=== PATIENT | male | born 1960 | race Caucasian/White ===

== ENCOUNTER → 2019-02-07 11:22 | Outpatient (CLI) | payer OTHER, SELFPAY ==
[2019-02-07 12:13] LABS: Add Manual Diff / Slide Review NO; Basophils Absolute Auto 0 /uL (0-100); Basophils Percent Auto 0.4 % (0-2); Eosinophils Absolute Auto 100 /uL (0-450); Hematocrit 46.6 % (41-53); Hemoglobin 15.7 g/dL (13.5-17.5); Lymphocytes Absolute Auto 3700 /uL (1100-4500); Lymphocytes Percent Auto 46.4 % (25-40); Mean Corpuscular HGB Conc 33.6 % (30-36); Mean Corpuscular Hemoglobin 30.3 PG (26-34); Mean Corpuscular Volume 90.1 fL (80-100); Monocytes Absolute Auto 600 /uL (0-900); Monocytes Percent Auto 8.1 % (3-14); Neutrophils Absolute Auto 3500 /uL (1500-7000); Neutrophils Percent Auto 44.1 % (50-75); Platelet Count 196 X10^3/uL (150-400); Red Blood Cell Count 5.18 X10^6/uL (4.5-5.9); Red Cell Distribution Width 13.2 % (11.6-14.8)
[2019-02-07 12:33] LABS: Alanine Aminotransferase 38 IU/L (21-72); Albumin 4.9 g/dL (3.5-5.0); Albumin Globulin Ratio 1.6 (1.0-2.8); Alkaline Phosphatase 41 U/L (38-126); Aspartate Aminotransferase 28 IU/L (17-59); BUN Creatinine Ratio 15.5 (6-22); Bilirubin Total 0.9 mg/dL (0.2-1.3); Blood Urea Nitrogen 17 mg/dL (9-20); Carbon Dioxide 26 mmol/L (22-32); Chloride 102 mmol/L (98-107); Cholesterol 173 mg/dL (140-199); Estimated Glomerular Filt Rate > 60.0 mL/min (>60); Globulin 3.1 g/dL (1.7-4.1); Glucose 96 mg/dL (70-100); HDL Cholesterol 52 mg/dL (40-60); HEMOLYSIS < 15 (0-50); LDL Cholesterol Calculated 80 mg/dL (<100); Potassium 4.3 mmol/L (3.4-5.1); Sodium 138 mmol/L (137-145); Triglycerides 204 mg/dL (35-150)
== END ==
PROVIDERS: PCP Internal Medicine; Visit Provider Internal Medicine
DX: E78.5 Hyperlipidemia, unspecified (principal); R73.01 Impaired fasting glucose; I10 Essential (primary) hypertension
CPT/HCPCS: 36415; 80053; 80061; 85025; G0103

== ENCOUNTER → 2019-08-01 09:09 | Outpatient (CLI) | payer OTHER, SELFPAY ==
--- NOTE | 2019-08-01 | DI.MRI.S_ITS ---
PROCEDURE: MR CERVICAL SPINE WO CON INDICATIONS: Spinal stenosis, cervical region TECHNIQUE: Noncontrast sagittal T1 spin echo and T2 fast spin echo, sagittal STIR, foraminal oblique sagittal T2 fast spin echo, and axial gradient echo or T2 fast spin echo through the cervical spine. COMPARISON: [facility], MR, C-SPINE WITHOUT CONTRAST, 01/14/2015, 9:08. [facility], CR, CERVICAL SPINE 2 OR 3 VIEWS, 12/08/2014, 13:23. FINDINGS: Image quality: Excellent. Alignment and Curvature: There is trace retrolisthesis of C4 on C5 and C5 on C6. Bone Marrow: Degenerative endplate signal changes are present in lower cervical spine. Spinal Cord: Visualized spinal cord has normal size and signal. No cerebellar tonsillar herniation. Paraspinous Soft Tissues: No paravertebral masses. Prevertebral soft tissues are normal in thickness. C2-C3: Preserved disc height. Mild disc desiccation. There is left posterior lateral annular fissure. Mild bilateral uncovertebral hypertrophy. The central canal is patent. Mild bilateral foraminal stenosis. No definitive nerve root impingement. C3-C4: Mild loss of disc height and disc desiccation. Mild diffuse posterior disc bulge. Uncovertebral hypertrophy, moderate on the right and mild on the left. Moderate right and mild left facet arthropathy. The central canal is mildly narrowed. Severe right and moderate left foraminal stenosis, not significantly changed from last exam. Possible right nerve root impingement. C4-C5: Moderate loss of disc height and disc desiccation. There is diffuse posterior disc bulge and disc osteophyte complex. Severe bilateral uncovertebral hypertrophy. Mild facet arthropathy bilaterally. The central canal is mildly narrowed. Severe left and moderate right foraminal stenosis, increased compared to the last exam. Possible left nerve root impingement. C5-C6: Moderate loss of disc height and disc desiccation. There is diffuse posterior disc bulge and disc osteophyte complex. Severe bilateral uncovertebral hypertrophy. The central canal is mildly narrowed. Severe left and moderate right foraminal stenosis, increased compared to the last exam. Possible left nerve root impingement. C6-C7: Qikcyupd-ky-khismh loss of disc height and disc desiccation. There is diffuse posterior disc bulge and disc osteophyte complex. Severe bilateral uncovertebral hypertrophy. The central canal is mildly narrowed. Modest to severe foraminal stenosis, increased compared to the last exam. Possible nerve root impingement bilaterally. C7-T1: Mild loss of disc height and posterior disc bulge. No central canal stenosis. Mild bilateral foramina stenosis. IMPRESSION: 1. Multilevel degenerative disc disease and facet arthropathy as described. 2. MIild central canal stenosis at C3-C4, C4-C5, C5-C6 and C6-C7. 3. Multilevel foraminal stenosis as described. Dictated by: Thor Amin M.D. on 08/01/2019 at 10:29 Approved by: Thor Amin M.D. on 08/01/2019 at 17:21
== END ==
PROVIDERS: PCP Internal Medicine; Visit Provider Internal Medicine
DX: M48.02 Spinal stenosis, cervical region (principal); M47.812 Spondylosis without myelopathy or radiculopathy, cervical region; M50.31 Other cervical disc degeneration, high cervical region
CPT/HCPCS: 72141

== ENCOUNTER → 2020-02-06 07:38 | Outpatient (CLI) | payer OTHER, SELFPAY ==
[2020-02-06 08:28] LABS: Alanine Aminotransferase 29 IU/L (<50); Albumin 4.5 g/dL (3.5-5.0); Albumin Globulin Ratio 1.5 (1.0-2.8); Alkaline Phosphatase 39 U/L (38-126); Aspartate Aminotransferase 28 IU/L (17-59); Bilirubin Total 0.6 mg/dL (0.2-1.3); Blood Urea Nitrogen 16 mg/dL (9-20); Calcium 9.6 mg/dL (8.4-10.2); Carbon Dioxide 27 mmol/L (22-32); Chloride 104 mmol/L (98-107); Cholesterol 155 mg/dL (140-199); Estimated Glomerular Filt Rate > 60.0 mL/min (>60); Globulin 3.1 g/dL (1.7-4.1); Glucose 131 mg/dL (70-100); HDL Cholesterol 52 mg/dL (40-60); HEMOLYSIS < 15 (0-50); LDL Cholesterol Calculated 84 mg/dL (<100); Potassium 4.2 mmol/L (3.4-5.1); Sodium 138 mmol/L (137-145); Total Protein 7.6 g/dL (6.3-8.2); Triglycerides 95 mg/dL (35-150)
== END ==
PROVIDERS: PCP Internal Medicine; Referring Provider Internal Medicine; Visit Provider Internal Medicine
DX: E78.5 Hyperlipidemia, unspecified (principal)
CPT/HCPCS: 36415; 80053; 80061

== ENCOUNTER → 2020-07-30 10:18 | Outpatient (CLI) | payer OTHER, SELFPAY ==
--- NOTE | 2020-07-30 10:23 | DI.RAD.S_ITS ---
PROCEDURE: XR FOOT RT MIN 3V INDICATIONS: RT FOOT PAIN TECHNIQUE: 3 views of the foot were acquired. COMPARISON: None. FINDINGS: Bones: No fractures or dislocations. No suspicious bony lesions. Soft tissues: No tibiotalar joint effusion. Achilles tendon appears normal. IMPRESSION: No fracture. No osseous lesion. If symptoms and/or clinical suspicion for pathology persists, further assessment with repeat radiographs (7-10 days) or advanced imaging (e.g. CT, MRI or bone scan) may be helpful. Dictated by: Gloria Ch MD, PhD on 07/30/2020 at 16:43 Approved by: Gloria Ch MD, PhD on 07/30/2020 at 16:44
== END ==
PROVIDERS: PCP Internal Medicine; Referring Provider Internal Medicine; Visit Provider Internal Medicine
DX: M79.671 Pain in right foot (principal); M15.0 Primary generalized (osteo)arthritis
CPT/HCPCS: 73630

== ENCOUNTER → 2020-08-06 15:15 | Outpatient (CLI) | payer OTHER, SELFPAY ==
[2020-08-06 16:04] LABS: Uric Acid 6.8 mg/dL (3.5-8.5)
[2020-08-06 16:15] LABS: Erythrocyte Sedimentation Rate 4 MM/HR (0-15)
== END ==
PROVIDERS: PCP Internal Medicine; Referring Provider Internal Medicine; Visit Provider Internal Medicine
DX: R70.0 Elevated erythrocyte sedimentation rate (principal); E79.0 Hyperuricemia without signs of inflammatory arthritis and tophaceous disease
CPT/HCPCS: 36415; 84550; 85651

== ENCOUNTER 2021-10-01 11:14 | Emergency (ER) | payer OTHER, SELFPAY ==
[2021-10-01] VITALS (7 sets, daily range): BP systolic 107–122; BP diastolic 78–91; PULSE 81–129; RESP 18–24; TEMP 36.4; O2SAT 95–99
--- NOTE | 2021-10-01 11:25 | DI.RAD.S_ITS ---
PROCEDURE: XR CHEST 1V INDICATIONS: chest pain TECHNIQUE: One view of the chest was acquired. COMPARISON: [facility], , CHEST 2 VIEW, 08/29/2016, 14:37. FINDINGS: Surgical changes and devices: None. Lungs and pleura: An incomplete inspiratory result is noted, causing a crowded appearance to the lung markings. No focal infiltrates are seen. No pneumothorax or significant pleural effusions are seen. Mediastinum: The cardiac contours are within normal limits. The aorta demonstrates calcification and tortuosity. Bones and chest wall: No suspicious bony lesions. Age-appropriate bony degenerative changes are seen. Overlying soft tissues appear unremarkable. IMPRESSION: Limited portable chest examination, without a significant cardiopulmonary abnormality identified. Dictated by: Alex Santos M.D. on 10/01/2021 at 10:59 Approved by: Alex Santos M.D. on 10/01/2021 at 11:00
[2021-10-01 11:51] LABS: Add Manual Diff / Slide Review NO; Basophils Absolute Auto 100 /uL (0-100); Basophils Percent Auto 0.4 % (0-2); Eosinophils Absolute Auto 0 /uL (0-450); Eosinophils Percent Auto 0.2 % (2-4); Hematocrit 45.6 % (41-53); Hemoglobin 15.6 g/dL (13.5-17.5); Lymphocytes Absolute Auto 2200 /uL (1100-4500); Mean Corpuscular HGB Conc 34.1 % (30-36); Mean Corpuscular Hemoglobin 30.6 PG (26-34); Mean Corpuscular Volume 89.8 fL (80-100); Monocytes Absolute Auto 1400 /uL (0-900); Monocytes Percent Auto 11.1 % (3-14); Neutrophils Absolute Auto 9000 /uL (1500-7000); Neutrophils Percent Auto 71.3 % (50-75); Platelet Count 156 X10^3/uL (150-400); Red Blood Cell Count 5.08 X10^6/uL (4.5-5.9); Red Cell Distribution Width 13.3 % (11.6-14.8); White Blood Cell Count 12.7 X10^3/uL (4.5-11.0)
[2021-10-01 11:52] LABS: INR 1.1 (0.9-1.3); Prothrombin Time 12.5 SECONDS (10.1-12.7)
--- NOTE | 2021-10-01 11:53 | ED_ITS ---
HPI - Syncope General Chief Complaint: Syncope Stated Complaint: root canal yesterday, face puffy Time Seen by Provider: 10/01/21 11:52 Source: patient Mode of arrival: Ambulatory Limitations: no limitations History of Present Illness HPI narrative: This is a 61-year-old male who comes to the emergency department with several concerns. Patient had a root canal on tooth 3. Yesterday, who was noted that tooth number 31 had been bothering him it was a little bit swollen yesterday [facility]. He has noticed increasing swelling and discomfort at that site as well as just under his chin. No redness or warmth. He has not had any fevers. He has been taking ibuprofen and Tylenol as needed for pain. He has not noted any drainage but has noted some tenderness swelling underneath his tongue. Patient states that he woke up at midnight to go to the bathroom. He urinated and states he woke up on the floor. He states that he could have been on the floor for more than a couple minutes he had woken up at 12:10 p.m. and was back in bed and asleep by 12 20. He states he was diaphoretic shortly there after. He did not have any incontinence. He states that he feels more comfortable upright, he is able to swallow liquids and food and feels swelling underneath the chin but not any in her airway. He denies chest pain, shortness of breath, palpitations. No swelling in his extremities but noted cramping last night. He had some nausea overnight but no vomiting. He has not had any other skin changes. He takes amlodipine for hypertension, statin Flomax. He is not anticoagulated he does not take an aspirin daily. He denies any prior surgical history other than dental surgeries. No known drug allergies. No tobacco, 4-5 alcoholic drinks daily, no illicit. He notes his father 2 brothers all have atrial fibrillation. His mother is 95 and has atrial fibrillation. He has never had any cardiac workup. He states the oral surgeon has called into antibiotics for his mouth. Related Data Home Medications Medication Instructions Recorded Confirmed amlodipine 10 mg tablet 10 mg PO BEDTIME 10/01/21 10/01/21 simvastatin 40 mg tablet 20 mg PO BEDTIME 10/01/21 10/01/21 tamsulosin 0.4 mg capsule 0.4 mg PO BEDTIME 10/01/21 10/01/21 Previous Rx's Medication Instructions Recorded apixaban 5 mg tablet (Eliquis) 5 mg PO BID #14 tab 10/01/21 metoprolol succinate 25 mg 12.5 mg PO DAILY #7 tab 10/01/21 tablet,extended release 24 hr Allergies Allergy/AdvReac Type Severity Reaction Status Date / Time No Known Drug Allergies Allergy Verified 10/01/21 11:23 Review of Systems Review of Systems ROS Unobtainable: All systems reviewed & are unremarkable except as noted in HPI and below Patient History Social History Smoking Status: Former smoker Smoking Status: Former smoker alcohol intake frequency: 3 or more drinks per day Substance Use Type: marijuana Exam Narrative Exam Narrative: GEN: well nourished, well appearing male, alert and oriented x 3, patient appears to be in mild distress. HEENT: Atraumatic, pupils are equal round reactive to light, extraocular movements are intact, nares are clear, TMs are clear with no fluid, there is no conjunctival pallor. Throat is clear without any exudates, erythema, tonsillar enlargement or uvular deviation, patient does appear to have root canal on the right upper which appears intact. There is not all of foot patient has foods phone of the right lower gum and some mild swelling underneath the mandible. No warmth, erythema or fluctuance is appreciated. No masses noted. HEART: Irregularly irregularrate and rhythm without murmur, clicks, rubs. No JVD. No swelling bilateral lower extremities. LUNGS:Lungs clear to auscultation, no wheezes, rales, crackles, chest moves symmetrically, speaks in full sentences. ABD:bowel sounds normal, soft, non-tender, no guarding, rebound, rigidity, no masses noted, no hepatosplenomegaly MSCL: Non-tender, full range of motion, normal gait NEURO:CN 2-12 intact, sensation normal SKIN: No warmth, erythema or other skin changes noted. Initial Vital Signs Initial Vital Signs: Vital Signs Temperature 97.5 F L 10/01/21 11:16 Pulse Rate 100 H 10/01/21 11:16 Respiratory Rate 18 10/01/21 11:16 Blood Pressure 122/78 10/01/21 11:16 Pulse Oximetry 95 10/01/21 11:16 Scores CHADS-VASc Congestive heart failure: no Hypertension: yes Age 75 years or older: no Diabetes mellitus: no Stroke, TIA, or TE: no Vascular disease: no Age 65 to 74 years: no Sex category (female): Male CHADS-VASc Score: 1 Course Orders Ordered: ED Orders 10/01/21 11:25 XR chest 1V Stat 10/01/21 11:30 EKG-12 Lead Stat 10/01/21 11:35 Complete Blood Count AUTO DIFF Stat Comprehensive Metabolic Panel Stat Lipase Stat Magnesium Stat Partial Thromboplastin Time Stat Prothrombin Time INR Stat Troponin & CK Cardiac Panel Stat 10/01/21 12:03 COVID19 - ADMIT ([employer] swab/PCR) Stat 10/01/21 12:18 BNP [NT-proBNP (BNP-Adult 18+)] Stat Discontinued Medications Amoxicillin/Clavulanate Potassium (Amoxicillin/Clav 875/125 Mg) 1 tab PO NOW ONE Stop: 10/01/21 12:26 Last Admin: 10/01/21 12:38 Dose: 1 tab Documented by: ZAIN Apixaban (Apixaban 5 Mg Tablet) 5 mg PO NOW ONE Stop: 10/01/21 13:49 Last Admin: 10/01/21 13:51 Dose: 5 mg Documented by: ZAIN Dexamethasone (Dexamethasone 10 Mg/Ml Vial) 10 mg IV NOW ONE Stop: 10/01/21 12:25 Last Admin: 10/01/21 12:38 Dose: 10 mg Documented by: ZAIN Diltiazem HCl (Diltiazem 5 Mg/Ml Sdv) 10 mg IV NOW ONE Stop: 10/01/21 12:25 Last Admin: 10/01/21 13:10 Dose: Not Given Documented by: ANASTACIA Sodium Chloride (Normal Saline 0.9%) 1,000 mls @ 1,000 mls/hr IV BOLUS ONE Stop: 10/01/21 13:23 Last Infusion: 10/01/21 13:41 Dose: 0 mls/hr Documented by: Admin: 10/01/21 12:38 Dose: 1,000 mls/hr Documented by: ZAIN Metoprolol Tartrate (Metoprolol Ir 25 Mg Tablet) 25 mg PO NOW ONE Stop: 10/01/21 12:32 Last Admin: 10/01/21 12:38 Dose: 25 mg Documented by: ZAIN Vital Signs Vital signs: Vital Signs - 8 hr 10/01/21 11:16 10/01/21 11:29 10/01/21 11:30 Temperature 97.5 F L Pulse Rate 100 H 129 H 112 H Respiratory Rate 18 22 19 Blood Pressure 122/78 121/91 H Pulse Oximetry 95 99 98 10/01/21 12:00 10/01/21 12:30 10/01/21 13:00 Temperature Pulse Rate 117 H 95 H 97 H Respiratory Rate 20 24 20 Blood Pressure 118/80 109/79 118/80 Pulse Oximetry 97 96 97 10/01/21 13:30 Temperature Pulse Rate 81 Respiratory Rate 18 Blood Pressure 107/80 Pulse Oximetry 96 MDM - Syncope Lab Data Result diagrams: 10/01/21 11:35 10/01/21 11:35 Labs: Lab Results 10/01/21 10/01/21 10/01/21 Range/Units 11:35 11:35 11:35 WBC 12.7 H (4.5-11.0) X10^3/uL RBC 5.08 (4.5-5.9) X10^6/uL Hgb 15.6 (13.5-17.5) g/dL Hct 45.6 (41-53) % MCV 89.8 (80-100) fL MCH 30.6 (26-34) PG MCHC 34.1 (30-36) % RDW 13.3 (11.6-14.8) % Plt Count 156 (150-400) X10^3/uL Neut % (Auto) 71.3 (50-75) % Lymph % (Auto) 17.0 L (25-40) % [place] % (Auto) 11.1 (3-14) % Eos % (Auto) 0.2 L (2-4) % Baso % (Auto) 0.4 (0-2) % Neut # (Auto) 9000 H (2646-9682) /uL Lymph # (Auto) 2200 (8549-9606) /uL [place] # (Auto) 1400 H (0-900) /uL Eos # (Auto) 0 (0-450) /uL Baso # (Auto) 100 (0-100) /uL PT 12.5 (10.1-12.7) SECONDS INR 1.1 (0.9-1.3) APTT 31 (26.4-36.2) SECONDS Sodium 138 (137-145) mmol/L Potassium 4.0 (3.4-5.1) mmol/L Chloride 105 (98-107) mmol/L Carbon Dioxide 22 (22-32) mmol/L BUN 14 (9-20) mg/dL Creatinine 1.02 (0.66-1.25) mg/dL Estimated GFR > 60.0 (>60) mL/min BUN/Creatinine Ratio 13.7 (6-22) Glucose 121 H (80-110) mg/dL Calcium 9.7 (8.4-10.2) mg/dL Magnesium 2.3 (1.6-2.3) mg/dL Total Bilirubin 1.5 H (0.2-1.3) mg/dL AST 28 (17-59) IU/L ALT 21 (<50) IU/L Alkaline Phosphatase 32 L (38-126) U/L Total Creatine Kinase 198 H (55-170) U/L CK-MB (CK-2) 0.88 (<2.37) ng/mL CK-MB (CK-2) Rel Index 0.4 L (1.5-5.0) % Troponin I < 0.012 (0.01-0.034) ng/mL NT-Pro-B Natriuret Pep (<125) pg/mL Total Protein 8.5 H (6.3-8.2) g/dL Albumin 4.8 (3.5-5.0) g/dL Globulin 3.7 (1.7-4.1) g/dL Albumin/Globulin Ratio 1.3 (1.0-2.8) Lipase 85 (23-300) U/L SARS-CoV-2 (PCR) (Negative) 10/01/21 10/01/21 Range/Units 12:03 12:18 WBC (4.5-11.0) X10^3/uL RBC (4.5-5.9) X10^6/uL Hgb (13.5-17.5) g/dL Hct (41-53) % MCV (80-100) fL MCH (26-34) PG MCHC (30-36) % RDW (11.6-14.8) % Plt Count (150-400) X10^3/uL Neut % (Auto) (50-75) % Lymph % (Auto) (25-40) % [place] % (Auto) (3-14) % Eos % (Auto) (2-4) % Baso % (Auto) (0-2) % Neut # (Auto) (5590-0136) /uL Lymph # (Auto) (3781-0970) /uL [place] # (Auto) (0-900) /uL Eos # (Auto) (0-450) /uL Baso # (Auto) (0-100) /uL PT (10.1-12.7) SECONDS INR (0.9-1.3) APTT (26.4-36.2) SECONDS Sodium (137-145) mmol/L Potassium (3.4-5.1) mmol/L Chloride (98-107) mmol/L Carbon Dioxide (22-32) mmol/L BUN (9-20) mg/dL Creatinine (0.66-1.25) mg/dL Estimated GFR (>60) mL/min BUN/Creatinine Ratio (6-22) Glucose (80-110) mg/dL Calcium (8.4-10.2) mg/dL Magnesium (1.6-2.3) mg/dL Total Bilirubin (0.2-1.3) mg/dL AST (17-59) IU/L ALT (<50) IU/L Alkaline Phosphatase (38-126) U/L Total Creatine Kinase (55-170) U/L CK-MB (CK-2) (<2.37) ng/mL CK-MB (CK-2) Rel Index (1.5-5.0) % Troponin I (0.01-0.034) ng/mL NT-Pro-B Natriuret Pep 620 H (<125) pg/mL Total Protein (6.3-8.2) g/dL Albumin (3.5-5.0) g/dL Globulin (1.7-4.1) g/dL Albumin/Globulin Ratio (1.0-2.8) Lipase (23-300) U/L SARS-CoV-2 (PCR) Negative (Negative) Imaging Data Chest x-ray: Radiologist's Impression: Launch?[address] [address] XRay Report Signed Patient: Mervin Bal MR#: [id number] : 1960 Acct:[id number] Age/Sex: 61 / M Date of Service: 10/01/21 Loc: ED Accession Number: [id number] ?? Procedure: XR chest 1V Ordering Provider: Ann Marie Whitman D.O. PROCEDURE:? XR CHEST 1V ? INDICATIONS:? chest pain ? TECHNIQUE:? One view of the chest was acquired.? ? COMPARISON:? [facility], , CHEST 2 VIEW, 08/29/2016, 14:37. ? FINDINGS:? ? Surgical changes and devices:? None.? ? Lungs and pleura:? An incomplete inspiratory result is noted, causing a crowded appearance to the lung markings.? No focal infiltrates are seen.? No pneumothorax or significant pleural effusions are seen. ? ? Mediastinum:? The cardiac contours are within normal limits. The aorta demonstrates calcification and tortuosity. ? Bones and chest wall:? No suspicious bony lesions.? Age-appropriate bony degenerative changes are seen.? ? Overlying soft tissues appear unremarkable.? IMPRESSION:? ? Limited portable chest examination, without a significant cardiopulmonary abnormality identified.? ? ? Dictated by: Alex Santos M.D. on 10/01/2021 at 10:59 ? ? Approved by: Alex Santos M.D. on 10/01/2021 at 11:00? ECG Data Attestation: I personally reviewed and interpreted this ECG as follows: Prior ECG tracings: not available for review Interpretation: Atrial fib with RVR. Nonspecific ST changes rate of 122 QRS 86 and QTC of 458. No significant elevation appreciated. Patient has some depression in V4-6. MDM Narrative Medical decision making narrative: This is a 61-year-old male who comes in with concerns for and dental infection. Patient a root canal yesterday 1 of his teeth was known to be irritating him and is suspected to be infected. He had some increasing swelling but overnight was noted to have a syncopal episode. When he arrives today he is in AFib RVR. He is otherwise asymptomatic. He does appear to have a mild dental infection and was started on oral antibiotic. His labs otherwise do not show any major electrolyte abnormalities, troponin is negative, renal function is normal, hemoglobin is normal as well with no signs of sepsis or overwhelming infection causing his AFib RVR. He has a significant family history. He is not anticoagulated and is normally on amlodipine and a statin. He does not have any known coronary artery disease but has not been cathed. His chads Vasc score is 1. Case was discussed with Cardiology, Dr. Hartman who recommends Eliquis, rate control with oral medication, ECHO and follow up with cardiology. Discussed recommendations with patient. He is willing to take oral anticoagulation. He does not wish to stay for echo was offered to be obtained here in the ED he is open to follow cardiology. He had prescription sent by his oral surgeon for antibiotics which I encouraged him to also continue. Plan to start oral metoprolol 12.5 mg extended release. He has tolerated 25 mg while today. Return precautions were discussed. Patient's family asked for only a week long prescription and they will have their primary care in the longer term prescription through [facility] mail order prescriptions. Patient is rate controlled here in the department in the 80s to 70s. Discharge Plan Departure Patient Disposition: Home Clinical Impression: Atrial fibrillation with rapid ventricular response, Dental infection Instructions: DI for Atrial Fibrillation Activity Restrictions/Additional Instructions: Follow-up with cardiology. Call for an appointment. Also call your physician to follow-up. You should have an ECHO as discussed today. Your primary care physician can also help set this up for you in the meantime as well as give you a prescription that can go through your insurance company. Take metoprolol 1 tablet daily. This medication can cause low blood pressure in combination with your amlodipine. If you note low blood pressure this stop your medication and call your physician for recommendations. Take 1 tablet Eliquis twice daily for anticoagulation for stroke prevention. This medication should be continued beyond the next week and should be a permanent medication. Prescription sent to [facility] in [place]. Take antibiotics as prescribed by your oral surgeon. Return for fevers, increasing swelling lips, mouth or airway, difficulty swallowing, muffled voice, difficulty breathing, new chest pain, shortness of breath, lightheadedness or passing out, black or bloody stools, new swelling in your extremities or other new or concerning symptoms. Prescriptions: New metoprolol succinate 25 mg tablet extended release 24 hr 12.5 mg PO DAILY Qty: 7 0RF Eliquis 5 mg tablet 5 mg PO BID Qty: 14 0RF No Action simvastatin 40 mg tablet 20 mg PO BEDTIME 0RF tamsulosin 0.4 mg capsule 0.4 mg PO BEDTIME 0RF amlodipine 10 mg tablet 10 mg PO BEDTIME 0RF Referrals: Erick Laguerre MD [Primary Care Provider] - Espinoza Hartman MD [Physician] -
[2021-10-01 11:55] LABS: PTT Partial Thromboplastin Tim 31 SECONDS (26.4-36.2)
[2021-10-01 11:57] LABS: Alanine Aminotransferase 21 IU/L (<50); Albumin 4.8 g/dL (3.5-5.0); Albumin Globulin Ratio 1.3 (1.0-2.8); Alkaline Phosphatase 32 U/L (38-126); Aspartate Aminotransferase 28 IU/L (17-59); BUN Creatinine Ratio 13.7 (6-22); Bilirubin Total 1.5 mg/dL (0.2-1.3); Blood Urea Nitrogen 14 mg/dL (9-20); Calcium 9.7 mg/dL (8.4-10.2); Carbon Dioxide 22 mmol/L (22-32); Chloride 105 mmol/L (98-107); Creatine Kinase 198 U/L (55-170); Estimated Glomerular Filt Rate > 60.0 mL/min (>60); Globulin 3.7 g/dL (1.7-4.1); Glucose 121 mg/dL (80-110); HEMOLYSIS < 15 (0-50); Lipase 85 U/L (23-300); Magnesium 2.3 mg/dL (1.6-2.3); Sodium 138 mmol/L (137-145); Total Protein 8.5 g/dL (6.3-8.2)
[2021-10-01 12:08] LABS: Troponin I < 0.012 ng/mL (0.01-0.034)
[2021-10-01 12:12] LABS: CKMB % Relative Index 0.4 % (1.5-5.0); Creatine Kinase MB 0.88 ng/mL (<2.37)
[2021-10-01 12:35] LABS: NT-proBNP (BNP-Adult 18+) 620 pg/mL (<125)
[2021-10-01] MEDS: METOPROLOL IR 25 MG TABLET PO (12:38)
[2021-10-01] MEDS: DEXAMETHASONE 10 MG/ML VIAL IV (12:38)
[2021-10-01] MEDS: SODIUM CHLORIDE 0.9% 1,000 ML 1000 ML IV (12:38)
[2021-10-01] MEDS: AMOXICILLIN/CLAV 875/125 MG 1 TAB PO (12:38)
[2021-10-01 13:07] LABS: COVID19 - ADMIT (NP swab/PCR) Negative (Negative)
[2021-10-01] MEDS: APIXABAN 5 MG TABLET PO (13:51)
== END 2021-10-01 14:01 | disposition home or self-care (01) ==
PROVIDERS: Emergency Provider Emergency Medicine; PCP Internal Medicine
DX: I48.91 Unspecified atrial fibrillation (principal); K04.7 Periapical abscess without sinus; Z87.891 Personal history of nicotine dependence; Z20.822 Contact with and (suspected) exposure to COVID-19
CPT/HCPCS: 36415; 71045; 80053; 82550; 82553; 83690; 83735; 83880; 84484; 85025; 85610; 85730; 87635; 93005; 93010; 96361; 96374; 99284; C9803; J1100

== ENCOUNTER 2021-10-03 07:05 | Emergency (ER) | payer OTHER, SELFPAY ==
[2021-10-03] VITALS (12 sets, daily range): BP systolic 109–118; BP diastolic 72–90; PULSE 71–85; RESP 16–18; TEMP 36.6; O2SAT 96–98; BMI 29.9
--- NOTE | 2021-10-03 07:23 | ED_ITS ---
HPI - Dental/Oral General Chief complaint: Dental/Oral Stated complaint: throat swollen,trouble swallowing, here on Fri Time Seen by Provider: 10/03/21 07:21 Source: patient, family, RN notes reviewed and old records reviewed Mode of arrival: Ambulatory Limitations: no limitations History of Present Illness HPI Narrative: This is a 61-year-old male who was seen by myself on 10/01/2021 for AFib RVR and dental infection swelling of the face. Patient had a root canal on tooth 3. On the upper jaw on the . It was noted that tooth number 31 had been bothering him and he was starting to have swelling on his lower jaw and underneath the med that. He was also noted that time to be in AFib with RVR. He was discharged home on Eliquis, metoprolol and rate controlled. He did not have a known history and was not a candidate for cardioversion due to unknown onset. Patient was discharged home after receiving a dose of dexamethasone and Augmentin here and his oral surgeon had prescribed amoxicillin and metronidazole which she has been taking regularly since then. Yesterday around noon he started noticing swelling again underneath the jaw which has been increasing, he has noted some swelling underneath the tongue which has pushed his tongue upwards a little. Patient states he does not have any voices to change. He does not feel like his airway is being impinged or swollen. He denies fevers or chills. He has had pain on the lower jaw at the same area as the tooth. He has not had any drainage. No chills. Denies chest pain or shortness of breath. No nausea or vomiting no other GI or urinary symptoms. He did stop the Eliquis in anticipation of seeing the dentist to have that tooth number 31 extracted. Patient states the swelling had improved quite a bit after he left the hospital but has since recurred. He is known to have a history of hypertension and dyslipidemia and is normally on amlodipine, simvastatin tamsulosin with a low- dose metoprolol added on on the as well as Eliquis which he is holding at the time being. He denies any prior surgical history other than dental murphy rgeries. No known drug allergies. No tobacco. 4-5 alcoholic drinks daily. No illicit. Has a family history with his father and 2 of his brothers with AFib and his mother who is 95 with AFib. He has been taking Tylenol and Advil as needed for pain control. Related Data Home Medications Medication Instructions Recorded Confirmed amlodipine 10 mg tablet 10 mg PO BEDTIME 10/01/21 10/01/21 simvastatin 40 mg tablet 20 mg PO BEDTIME 10/01/21 10/01/21 tamsulosin 0.4 mg capsule 0.4 mg PO BEDTIME 10/01/21 10/01/21 Previous Rx's Medication Instructions Recorded apixaban 5 mg tablet (Eliquis) 5 mg PO BID #14 tab 10/01/21 metoprolol succinate 25 mg 12.5 mg PO DAILY #7 tab 10/01/21 tablet,extended release 24 hr clindamycin HCl 300 mg capsule 300 mg PO QID #40 cap 10/03/21 dexamethasone 4 mg tablet 4 mg PO DAILY #3 tab 10/03/21 levofloxacin 750 mg tablet 750 mg PO DAILY 10 Days #10 tab 10/03/21 Allergies Allergy/AdvReac Type Severity Reaction Status Date / Time No Known Drug Allergies Allergy Verified 10/01/21 11:23 Review of Systems Review of Systems ROS Unobtainable: All systems reviewed & are unremarkable except as noted in HPI and below Patient History Social History Smoking Status: Former smoker Smoking Status: Former smoker alcohol intake frequency: 3 or more drinks per day Substance Use Type: marijuana Exam Narrative Exam Narrative: GEN: well nourished, well appearing male, alert and oriented x 3, patient appears to be in mild distress. HEENT: Atraumatic, pupils are equal round reactive to light, extraocular movements are intact, nares are clear, TMs are clear with no fluid, there is no conjunctival pallor. Throat is clear without any exudates, erythema, tonsillar enlargement or uvular deviation, patient has some mild swelling of the red home neck underneath the right mandible, some slight erythema. I can appreciate some swelling sublingual duct. Patient does not have significant swelling at the teeth, there is no fluctuance or fluid collection in the teeth or cheek. He does not have any distinct bony tenderness on palpation. Product again is soft and nonswollen. Patient does not have any cervical lymphadenopathy appreciated. Normal speech. No hoarseness. No stridor. Patient is lying slightly backwards and swelling secretions without issues. I do not appreciate any other swelling of the tongue or oropharynx in the upper half. HEART: Regular rate and rhythm without murmur, clicks, rubs. LUNGS:Lungs clear to auscultation, no wheezes, rales, crackles, chest moves symmetrically ABD:bowel sounds normal, soft, non-tender, no guarding, rebound, rigidity, no masses noted, no hepatosplenomegaly MSCL: Non-tender, no muscle atrophy, muscles strength 5/5 upper and lower extremities, full range of motion, normal gait NEURO:CN 2-12 intact, sensation normal SKIN: Slight erythema of the right neck. Not appreciated elsewhere. Initial Vital Signs Initial Vital Signs: Vital Signs Pulse Rate 81 10/03/21 07:14 Pulse Oximetry 98 10/03/21 07:14 Course Orders Ordered: ED Orders 10/03/21 07:39 CT soft tissue neck w con Stat 10/03/21 07:41 Basic Metabolic Panel Stat Complete Blood Count AUTO DIFF Stat Lactate (Lactic Acid) Stat PTT [Partial Thromboplastin Time] Stat Prothrombin Time INR Stat 10/03/21 08:02 COVID19 -Nasal swab/Pre-Proc Stat 10/03/21 08:45 Blood Culture Stat Discontinued Medications Acetaminophen (Acetaminophen 325 Mg Tablet) 975 mg PO NOW ONE Stop: 10/03/21 10:18 Last Admin: 10/03/21 10:28 Dose: 975 mg Documented by: LAURA Dexamethasone (Dexamethasone 10 Mg/Ml Vial) 10 mg IV NOW ONE Stop: 10/03/21 07:40 Last Admin: 10/03/21 07:49 Dose: 10 mg Documented by: TAHIR Ampicillin Sodium/Sulbactam (Sodium 3 gm/ Sodium Chloride) 100 mls @ 100 mls/hr IV NOW ONE Stop: 10/03/21 07:40 Last Infusion: 10/03/21 10:25 Dose: 0 mls/hr Documented by: Admin: 10/03/21 09:01 Dose: 100 mls/hr Documented by: LAURA Sodium Chloride (Normal Saline 0.9%) 1,000 mls @ 1,000 mls/hr IV BOLUS ONE Stop: 10/03/21 08:57 Last Infusion: 10/03/21 10:26 Dose: 0 mls/hr Documented by: Admin: 10/03/21 08:03 Dose: 1,000 mls/hr Documented by: LUARA Sodium Chloride (Normal Saline 0.9%) 1,000 mls @ 1,000 mls/hr IV BOLUS ONE Stop: 10/03/21 08:48 Last Admin: 10/03/21 09:01 Dose: Not Given Documented by: LAURA Reevaluation(s) Reevaluation #1: Patient states much improvement. We reviewed ENT is recommendations. Time: 10:06 Consultations Consultation #1: Dr. Poppy Finley, ENT. Recommend changing antibiotics to include clindamycin. Would be appropriate for dexamethasone needs to follow up with his oral surgeon. Vital Signs Vital signs: Vital Signs - 8 hr 10/03/21 07:14 10/03/21 07:18 10/03/21 07:30 Temperature 97.8 F Pulse Rate 81 80 85 Respiratory Rate 18 Blood Pressure 111/75 Pulse Oximetry 98 98 97 10/03/21 08:00 10/03/21 08:30 10/03/21 09:00 Temperature Pulse Rate 76 76 72 Respiratory Rate Blood Pressure 109/72 Pulse Oximetry 96 97 98 10/03/21 09:01 10/03/21 09:30 10/03/21 10:00 Temperature Pulse Rate 75 71 79 Respiratory Rate Blood Pressure 117/78 111/83 118/90 Pulse Oximetry 98 97 97 10/03/21 10:30 10/03/21 10:49 10/03/21 11:00 Temperature Pulse Rate 78 72 Respiratory Rate 16 Blood Pressure Pulse Oximetry 98 96 MDM - Dental/Oral Lab Data Result diagrams: 10/03/21 07:41 10/03/21 07:41 Labs: Lab Results 10/03/21 10/03/21 10/03/21 Range/Units 07:41 07:41 07:41 WBC 10.9 (4.5-11.0) X10^3/uL RBC 4.38 L (4.5-5.9) X10^6/uL Hgb 13.3 L (13.5-17.5) g/dL Hct 39.3 L (41-53) % MCV 89.9 (80-100) fL MCH 30.4 (26-34) PG MCHC 33.8 (30-36) % RDW 13.5 (11.6-14.8) % Plt Count 148 L (150-400) X10^3/uL Neut % (Auto) 65.4 (50-75) % Lymph % (Auto) 22.7 L (25-40) % [place] % (Auto) 11.3 (3-14) % Eos % (Auto) 0.2 L (2-4) % Baso % (Auto) 0.4 (0-2) % Neut # (Auto) 7100 H (4977-5305) /uL Lymph # (Auto) 2500 (5809-9107) /uL [place] # (Auto) 1200 H (0-900) /uL Eos # (Auto) 0 (0-450) /uL Baso # (Auto) 0 (0-100) /uL PT 12.0 (10.1-12.7) SECONDS INR 1.1 (0.9-1.3) APTT 30 (26.4-36.2) SECONDS Sodium 139 (137-145) mmol/L Potassium 4.0 (3.4-5.1) mmol/L Chloride 108 H (98-107) mmol/L Carbon Dioxide 23 (22-32) mmol/L BUN 19 (9-20) mg/dL Creatinine 0.89 (0.66-1.25) mg/dL Estimated GFR > 60.0 (>60) mL/min BUN/Creatinine Ratio 21.3 (6-22) Glucose 109 (80-110) mg/dL Lactate (0.7-2.1) mmol/L Calcium 8.9 (8.4-10.2) mg/dL SARS-CoV-2 (PCR) (Negative) 10/03/21 10/03/21 Range/Units 07:41 08:02 WBC (4.5-11.0) X10^3/uL RBC (4.5-5.9) X10^6/uL Hgb (13.5-17.5) g/dL Hct (41-53) % MCV (80-100) fL MCH (26-34) PG MCHC (30-36) % RDW (11.6-14.8) % Plt Count (150-400) X10^3/uL Neut % (Auto) (50-75) % Lymph % (Auto) (25-40) % [place] % (Auto) (3-14) % Eos % (Auto) (2-4) % Baso % (Auto) (0-2) % Neut # (Auto) (1769-8525) /uL Lymph # (Auto) (9421-1441) /uL [place] # (Auto) (0-900) /uL Eos # (Auto) (0-450) /uL Baso # (Auto) (0-100) /uL PT (10.1-12.7) SECONDS INR (0.9-1.3) APTT (26.4-36.2) SECONDS Sodium (137-145) mmol/L Potassium (3.4-5.1) mmol/L Chloride (98-107) mmol/L Carbon Dioxide (22-32) mmol/L BUN (9-20) mg/dL Creatinine (0.66-1.25) mg/dL Estimated GFR (>60) mL/min BUN/Creatinine Ratio (6-22) Glucose (80-110) mg/dL Lactate 0.8 (0.7-2.1) mmol/L Calcium (8.4-10.2) mg/dL SARS-CoV-2 (PCR) Negative (Negative) Imaging Data CT soft tissue neck: Radiologist's Impression: Launch?[place] [address] CT Scan Report Signed Patient: Mervin Bal MR#: [id number] : 1960 Acct:[id number] Age/Sex: 61 / M Date of Service: 10/03/21 Loc: ED Accession Number: [id number] ?? Procedure: CT soft tissue neck w con Ordering Provider: Ann Marie Whitman D.O. PROCEDURE:? CT SOFT TISSUE NECK W CON ? INDICATIONS:? right neck/cheek swelling worsening on abx ? TECHNIQUE:? After the administration of intravenous contrast, 3.0 mm axial sections acquired from the sella to the aortic arch.? Additional oblique axial 3.0 mm sections acquired through the pharynx.? 3 mm thick coronal and sagittal reformats were generated.? For radiation dose reduction, the following was used:? automated exposure control.? ? COMPARISON:? None. ? FINDINGS:? Image quality:? There is artifact associated with the metallic hardware. ? Artifact from the metallic hardware is reduced by metal reconstruction algorithm.? ? Lymph nodes:? Borderline prominent cervical lymph nodes are seen.? The largest is seen on the right at level 2A measuring 14 by 9 mm in greatest axial dimension, as on series 2, image 48. ? Vessels:? Visualized vasculature appears patent.? ? Neck spaces:? Mild generalized soft tissue swelling can be seen involving the submental region.? No focal fluid collections can be seen to suggest abscess. ? The oropharynx, nasopharynx, and pharynx demonstrate no mucosal lesions.? The vocal cords, false vocal cords, pyriform sinuses, epiglottis, vallecula, and tongue base all appear normal.? ? Glands:? The parotid and submandibular glands appear normal.? Thyroid gland demonstrates no significant abnormality.? ? Miscellaneous:? Visualized brain and orbits appear normal.? Lung apices appear clear.? Superficial soft tissues appear normal. ? Bones:? No suspicious bony lesions.? Visualized sinuses and mastoids appear unremarkable. ?Moderate S shaped nasal septal deviation is incidentally noted.? 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 Degenerative changes are seen, particularly involving the lower cervical spine, with at least moderate disc space narrowing at C4-C5, C5-C6, and C6-C7. ? ? ? IMPRESSION:? No focal abscess is seen. ? Generalized submental soft tissue swelling is seen. ? Borderline prominent lymph nodes are seen, which are attributed to reactive lymph nodes. ? ? ? Incidental note is made of: Moderate S shaped nasal septal deviation Lower cervical spine degenerative change ? Dictated by: Alex Santos M.D. on 10/03/2021 at 7:31 ? ? Approved by: Alex Santos M.D. on 10/03/2021 at 7:35?? [facility] Narrative Medical decision making narrative: This is a 61-year-old male who returns with recurrent swelling after being given a single dose of dexamethasone and being on amoxicillin and metronidazole since the . Patient had a root canal of the right upper jaw and has since developed swelling on the lower jaw the day afterwards which had improved and has now reoccurred. He does not have any other septic or toxic symptoms. He does have some swelling underneath the tongue. Patient was started on Unasyn, CT contrast soft tissue neck, labs and cultures were obtained. CT does not show abscess, there is mild generalized sub mental soft tissue swelling with borderline prominent lymph nodes. Case discussed with ENT. They recommend changing antibiotics to something with clindamycin included for better anaerobic coverage as well as follow-up with his dentist for extraction and short course of steroid.Discussed with patient he feels comfortable this plan he feels much better. We discussed he can return in 24 hours if he is having any worsening or to come back even sooner if symptoms are worsening. Patient and I discussed he is going to continue to hold Eliquis and the hopes that he can see his dentist early this week for extraction. He has been rate controlled here in the department in terms of his heart rate. All questions answered. Discharge Plan Departure Patient Disposition: Home Clinical Impression: Dental infection, Cellulitis of neck Instructions: DI for Cellulitis -- Adult Activity Restrictions/Additional Instructions: Follow-up with your oral surgeon/dentist for recheck and dental extraction. It would be appropriate to hold your Eliquis until you speak with your dentist if they are going to potentially extract your tooth in the next several days. Your CT imaging does show some swelling but no fluid collection or abscess on your imaging. Stop your current antibiotics. Start the new antibiotics today. Take them until completely gone. You may take 1 additional dose of dexamethasone tomorrow. Prescription sent to [facility] in [place]. Please return for fevers greater 100.4 F, increasing swelling, difficulty breathing, swelling of your tongue, airway, muffled voice, vomiting, increasing redness, warmth or skin changes or other new or concerning symptoms. Prescriptions: New clindamycin HCl 300 mg capsule 300 mg PO QID Qty: 40 0RF levofloxacin 750 mg tablet 750 mg PO DAILY 10 Days Qty: 10 0RF dexamethasone 4 mg tablet 4 mg PO DAILY Qty: 3 0RF No Action simvastatin 40 mg tablet 20 mg PO BEDTIME 0RF tamsulosin 0.4 mg capsule 0.4 mg PO BEDTIME 0RF amlodipine 10 mg tablet 10 mg PO BEDTIME 0RF metoprolol succinate 25 mg tablet extended release 24 hr 12.5 mg PO DAILY Qty: 7 0RF Eliquis 5 mg tablet 5 mg PO BID Qty: 14 0RF Referrals: Erick Laguerre MD [Primary Care Provider] -
--- NOTE | 2021-10-03 07:25 | ED.PEDHENT ---
HPI - Pediatric HENT General Chief complaint: Dental/Oral Stated complaint: throat swollen,trouble swallowing, here on Fri Time Seen by Provider: 10/03/21 07:21 Source: patient and family Mode of arrival: Ambulatory Limitations: no limitations Related Data Home Medications Medication Instructions Recorded Confirmed amlodipine 10 mg tablet 10 mg PO BEDTIME 10/01/21 10/01/21 simvastatin 40 mg tablet 20 mg PO BEDTIME 10/01/21 10/01/21 tamsulosin 0.4 mg capsule 0.4 mg PO BEDTIME 10/01/21 10/01/21 Previous Rx's Medication Instructions Recorded apixaban 5 mg tablet (Eliquis) 5 mg PO BID #14 tab 10/01/21 metoprolol succinate 25 mg 12.5 mg PO DAILY #7 tab 10/01/21 tablet,extended release 24 hr Allergies Allergy/AdvReac Type Severity Reaction Status Date / Time No Known Drug Allergies Allergy Verified 10/01/21 11:23 Patient History Social History Smoking Status: Former smoker Smoking Status: Former smoker alcohol intake frequency: 3 or more drinks per day Substance Use Type: marijuana Pediatric Exam Initial Vital Signs Initial Vital Signs: Vital Signs Temperature 97.8 F 10/03/21 07:18 Pulse Rate 80 10/03/21 07:18 Respiratory Rate 18 10/03/21 07:18 Blood Pressure 111/75 10/03/21 07:18 Pulse Oximetry 98 10/03/21 07:18 General Limitations: no limitations Course Orders Ordered: ED Orders 10/03/21 07:39 CT soft tissue neck w con Stat Basic Metabolic Panel Stat Blood Culture Stat Complete Blood Count AUTO DIFF Stat Lactate (Lactic Acid) Stat PTT [Partial Thromboplastin Time] Stat Prothrombin Time INR Stat Discontinued Medications Dexamethasone (Dexamethasone 10 Mg/Ml Vial) 10 mg IV NOW ONE Stop: 10/03/21 07:40 Ampicillin Sodium/Sulbactam (Sodium 3 gm/ Sodium Chloride) 100 mls @ 100 mls/hr IV NOW ONE Stop: 10/03/21 07:40 Vital Signs Vital signs: Vital Signs - 8 hr 10/03/21 07:18 Temperature 97.8 F Pulse Rate 80 Respiratory Rate 18 Blood Pressure 111/75 Pulse Oximetry 98 Discharge Plan Departure Prescriptions: No Action simvastatin 40 mg tablet 20 mg PO BEDTIME 0RF tamsulosin 0.4 mg capsule 0.4 mg PO BEDTIME 0RF amlodipine 10 mg tablet 10 mg PO BEDTIME 0RF metoprolol succinate 25 mg tablet extended release 24 hr 12.5 mg PO DAILY Qty: 7 0RF Eliquis 5 mg tablet 5 mg PO BID Qty: 14 0RF Referrals: Erick Laguerre MD [Primary Care Provider] -
--- NOTE | 2021-10-03 07:39 | DI.CT.S_ITS ---
PROCEDURE: CT SOFT TISSUE NECK W CON INDICATIONS: right neck/cheek swelling worsening on abx TECHNIQUE: After the administration of intravenous contrast, 3.0 mm axial sections acquired from the sella to the aortic arch. Additional oblique axial 3.0 mm sections acquired through the pharynx. 3 mm thick coronal and sagittal reformats were generated. For radiation dose reduction, the following was used: automated exposure control. COMPARISON: None. FINDINGS: Image quality: There is artifact associated with the metallic hardware. Artifact from the metallic hardware is reduced by metal reconstruction algorithm. Lymph nodes: Borderline prominent cervical lymph nodes are seen. The largest is seen on the right at level 2A measuring 14 by 9 mm in greatest axial dimension, as on series 2, image 48. Vessels: Visualized vasculature appears patent. Neck spaces: Mild generalized soft tissue swelling can be seen involving the submental region. No focal fluid collections can be seen to suggest abscess. The oropharynx, nasopharynx, and pharynx demonstrate no mucosal lesions. The vocal cords, false vocal cords, pyriform sinuses, epiglottis, vallecula, and tongue base all appear normal. Glands: The parotid and submandibular glands appear normal. Thyroid gland demonstrates no significant abnormality. Miscellaneous: Visualized brain and orbits appear normal. Lung apices appear clear. Superficial soft tissues appear normal. Bones: No suspicious bony lesions. Visualized sinuses and mastoids appear unremarkable. Moderate S shaped nasal septal deviation is incidentally noted. 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 Degenerative changes are seen, particularly involving the lower cervical spine, with at least moderate disc space narrowing at C4-C5, C5-C6, and C6-C7. IMPRESSION: No focal abscess is seen. Generalized submental soft tissue swelling is seen. Borderline prominent lymph nodes are seen, which are attributed to reactive lymph nodes. Incidental note is made of: Moderate S shaped nasal septal deviation Lower cervical spine degenerative change Dictated by: Alex Santos M.D. on 10/03/2021 at 7:31 Approved by: Alex Santos M.D. on 10/03/2021 at 7:35
[2021-10-03] MEDS: DEXAMETHASONE 10 MG/ML VIAL IV (07:49)
[2021-10-03] MEDS: SODIUM CHLORIDE 0.9% 1,000 ML 1000 ML IV (08:03)
[2021-10-03 08:08] LABS: Add Manual Diff / Slide Review NO; Basophils Absolute Auto 0 /uL (0-100); Basophils Percent Auto 0.4 % (0-2); Eosinophils Absolute Auto 0 /uL (0-450); Eosinophils Percent Auto 0.2 % (2-4); Hematocrit 39.3 % (41-53); Hemoglobin 13.3 g/dL (13.5-17.5); Lymphocytes Absolute Auto 2500 /uL (1100-4500); Lymphocytes Percent Auto 22.7 % (25-40); Mean Corpuscular HGB Conc 33.8 % (30-36); Mean Corpuscular Hemoglobin 30.4 PG (26-34); Mean Corpuscular Volume 89.9 fL (80-100); Monocytes Absolute Auto 1200 /uL (0-900); Monocytes Percent Auto 11.3 % (3-14); Neutrophils Absolute Auto 7100 /uL (1500-7000); Neutrophils Percent Auto 65.4 % (50-75); Platelet Count 148 X10^3/uL (150-400); Red Blood Cell Count 4.38 X10^6/uL (4.5-5.9); Red Cell Distribution Width 13.5 % (11.6-14.8); White Blood Cell Count 10.9 X10^3/uL (4.5-11.0)
[2021-10-03 08:16] LABS: INR 1.1 (0.9-1.3)
[2021-10-03 08:19] LABS: Lactate (Lactic Acid) 0.8 mmol/L (0.7-2.1); PTT Partial Thromboplastin Tim 30 SECONDS (26.4-36.2)
[2021-10-03 08:20] LABS: BUN Creatinine Ratio 21.3 (6-22); Blood Urea Nitrogen 19 mg/dL (9-20); Calcium 8.9 mg/dL (8.4-10.2); Carbon Dioxide 23 mmol/L (22-32); Chloride 108 mmol/L (98-107); Estimated Glomerular Filt Rate > 60.0 mL/min (>60); Glucose 109 mg/dL (80-110); HEMOLYSIS < 15 (0-50); Sodium 139 mmol/L (137-145)
[2021-10-03 08:32] LABS: COVID19 -Nasal RAPID Negative (Negative)
[2021-10-03] MEDS: AMPICILLIN/SULBACTAM 3 GM 3 GM in SODIUM CHLORIDE 0.9% 100 ML IV (09:01)
--- NOTE | 2021-10-03 10:24 | PC.NURSE ---
pt arrived to ER with submandibular swelling. swelling under his tongue. talking in sentences. no airway obstruction. swallowin his own secretions.
[2021-10-03] MEDS: ACETAMINOPHEN 325 MG TABLET 975 MG PO (10:28)
== END 2021-10-03 11:25 | disposition home or self-care (01) ==
PROVIDERS: Emergency Provider Emergency Medicine; PCP Internal Medicine
DX: K04.7 Periapical abscess without sinus (principal); L03.221 Cellulitis of neck; Z87.891 Personal history of nicotine dependence; Z20.822 Contact with and (suspected) exposure to COVID-19
CPT/HCPCS: 36415; 70491; 80048; 83605; 85025; 85610; 85730; 87040; 87635; 96361; 96365; 96375; 99284; C9803; J0295; J1100; Q9967

== ENCOUNTER → 2021-11-01 07:58 | Outpatient (CLI) | payer OTHER, SELFPAY ==
--- NOTE | 2021-11-01 | DI.ECHO.S_ITS ---
[facility]---------+ [facility] +---------+ : : [address] : : : : [phone] : : : : Phone: [phone] Echocardiogram Report + + :Name: NEFTALI SWARTZ Study Date: 11/01/2021 Height: 73 in : :[facility] ReadingLocation: Weight: 233 lb : : Gender: Male BSA: 2.3 m2 : :: 1960 Age: 61 yrs BP: 134/90 mmHg: :Reason For Study: ATRIAL FIBRILLATION : :Ordering Physician: SALVADOR, : :SENAIT Performed By: Roopa Shell : :Referring: SENAIT FRANCO : + + Interpretation Summary 1) Normal left ventricular thickness and size with low normal systolic function (EF 50-55%). 2) Upper normal right ventricular size with normal function. 3) No significant valvular abnormalities. 4) No prior Echo available for comparison. Procedure: A two-dimensional transthoracic echocardiogram with color flow and Doppler was performed. The study quality was technically adequate. There is no prior echocardiogram noted for this patient. The patient was in atrial fibrillation with heart rates between 75-99 bpm during the exam. Left Ventricle: The left ventricle is normal in size and wall thickness. The ejection fraction is estimated to be 50-55%. There are no focal wall motion abnormalities. Diastolic parameters suggest a relaxation abnormality of the left ventricle, consistent with probable normal filling pressures. Right Ventricle: The right ventricle is at the upper limits of normal in size. The right ventricular systolic function is normal. Atria: The left atrium is moderately dilated. Right atrial size is normal. There is no Doppler evidence for an interatrial shunt. Mitral Valve: The mitral valve is normal in structure and function. There is no mitral regurgitation noted. Aortic Valve: The aortic valve is trileaflet. The aortic valve opens well. There is no aortic valve stenosis. No aortic regurgitation is present. Tricuspid Valve: The tricuspid valve is normal in structure and function. There is mild tricuspid regurgitation. Pulmonic Valve: The pulmonic valve leaflets are thin and pliable; valve motion is normal. There is mild pulmonic regurgitation. Great Vessels: The aortic root is normal size. The ascending aorta is at the upper limits of normal in size. The IVC is of normal diameter and collapses greater than 50% with a sniff. This suggests a low right atrial pressure of 3 mm Hg. Pericardium/ Pleura There is no pericardial effusion. There is no pleural effusion. MMode/2D Measurements & Calculations LVIDd: 5.0 cm LVOT diam: 2.1 cm LVIDs: 3.7 cm Ao root diam: 3.8 cm FS: 25.7 % asc Aorta Diam: 3.7 cm IVSd: 0.84 cm Ao Arch Diam (Prox Trans): 3.0 cm LVPWd: 0.82 cm LV ocasio. diameter/BSA (cm/m^2): 2.2 LV sys. diameter/BSA (cm/m^2): 1.6 LA A2 area: 31.4 cm2 RA long axis: 5.9 cm LA A4 area: 24.4 cm2 RA area: 19.1 cm2 LA length (vol): 6.5 cm RA vol: 52.8 ml LA vol: 100.0 ml RA : 23.0 ml/m2 LA vol index: 43.5 ml/m2 IVC diam: 1.4 cm RVD1 (basal): 4.2 cm RVD2 (mid): 3.1 cm TAPSE: 1.7 cm Doppler Measurements & Calculations Ao V2 max: 129.3 cm/sec LVOT Max Yonny: 85.6 cm/sec Ao V2 mean: 97.5 cm/sec LV V1 max P.9 mmHg Ao max P.7 mmHg LV V1 VTI: 17.2 cm Ao mean P.1 mmHg JASBIR(I,D): 2.4 cm2 Ao V2 VTI: 25.6 cm JASBIR(V,D): 2.4 cm2 sev ratio: 0.67 JASBIR indexed to BSA (cm^2/m^2): 1.1 MV E max yonny: 92.2 cm/sec PA V2 max: 82.0 cm/sec MV A max yonny: 2.2 cm/sec PA V2 mean: 59.4 cm/sec MV E/A: 42.7 PA mean P.5 mmHg Med Peak E' Yonny: 8.2 cm/sec PA pr(Accel): 43.0 mmHg E/E' med: 11.2 Lat Peak E' Yonny: 14.0 cm/sec E/E' lat: 6.6 E/e' average: 8.9 MV dec time: 0.19 sec SV(LVOT): 61.7 ml Reading Physician:10:53 AM
== END ==
PROVIDERS: PCP Internal Medicine; Referring Provider Internal Medicine; Visit Provider Internal Medicine
DX: I48.19 Other persistent atrial fibrillation (principal); I07.1 Rheumatic tricuspid insufficiency; I37.1 Nonrheumatic pulmonary valve insufficiency
CPT/HCPCS: 93306

== ENCOUNTER 2024-07-11 13:13 | Emergency (ER) | payer BC, SELFPAY ==
[2024-07-11 13:19] VITALS: BP 149/93; PULSE 60; RESP 16; TEMP 36.6; O2SAT 100; BMI 27.7
[2024-07-11] MEDS: PROPARACAINE 0.5% OPHTH SOL 1 DROPS EYE-RIGHT (13:38)
[2024-07-11] MEDS: FLUORESCEIN 1 MG STRIP EYE-RIGHT (13:38)
--- NOTE | 2024-07-11 14:53 | ED.EYEPROB ---
HPI - Eye Problem <Odalis Ro PA-C - Last Filed: 07/11/24 17:34> General Chief complaint: Eye Problems Stated complaint: cloudy vision r eye Time Seen by Provider: 07/11/24 13:32 Source: patient Mode of arrival: Ambulatory History of Present Illness HPI Narrative: Patient is a very pleasant 63-year-old male who presents to the emergency room department today complaining of right-sided eye blurriness. Patient states today he was cutting his metoprolol pills, he was breaking them because they are perforated, he broke 1 of the pills, he thinks that there was a piece that might have gotten into the right eyelid, he kind of rubbed the eye which then caused some irritation which then started the eye blurriness. Since he has been here the eye blurriness has dissipated. Prior to being seen here in the emergency department he flushed the eye quite literally with copious amounts of water. He has no other further complaints. Does not wear contacts. Currently does not have any glasses on. No other further complaints currently at this time. Related Data Home Medications Medication Instructions Recorded Confirmed amlodipine 10 mg tablet 10 mg PO BEDTIME 10/01/21 10/01/21 simvastatin 40 mg tablet 20 mg PO BEDTIME 10/01/21 10/01/21 tamsulosin 0.4 mg capsule 0.4 mg PO BEDTIME 10/01/21 10/01/21 Previous Rx's Medication Instructions Recorded apixaban 5 mg tablet (Eliquis) 5 mg PO BID #14 tabs 10/01/21 metoprolol succinate 25 mg 12.5 mg (1/2 x 25 mg) PO DAILY #7 10/01/21 tablet,extended release 24 hr tabs clindamycin HCl 300 mg capsule 300 mg PO QID #40 caps 10/03/21 dexamethasone 4 mg tablet 4 mg PO DAILY #3 tabs 10/03/21 polymyxin B sulfate 10,000 1 drp EYE-RIGHT Q3H #10 mL 07/11/24 unit-trimethoprim 1 mg/mL eye drops Allergies Allergy/AdvReac Type Severity Reaction Status Date / Time No Known Drug Allergies Allergy Verified 07/11/24 13:22 Review of Systems <Odalis Ro PA-C - Last Filed: 07/11/24 17:34> Review of Systems Narrative: Negative except as above Eyes Comments: Some mild blurred vision tends to have dissipated currently at this time Patient History <Odalis Ro PA-C - Last Filed: 07/11/24 17:34> Social History Smoking Status: Former smoker Smoking Status: Former smoker alcohol intake frequency: 3 or more drinks per day Alcohol type: beer Substance Use Type: marijuana Exam <Odalis Ro PA-C - Last Filed: 07/11/24 17:34> Initial Vital Signs Initial Vital Signs: Vital Signs Temperature 97.8 F 07/11/24 13:19 Pulse Rate 60 07/11/24 13:19 Respiratory Rate 16 07/11/24 13:19 Blood Pressure 149/93 H 07/11/24 13:19 Pulse Oximetry 100 07/11/24 13:19 Oxygen Delivery Method Room Air 07/11/24 13:19 Reviewed Const General: cooperative, healthy appearing, comfortable, well developed, well groomed, No acute distress, No in distress and No anxious Nutritional Appearance: average body habitus Eyes General: Yes appearance normal, both eyes and all related structures Eyelids: eyelids normal and other (There is some uptake on the posterior eyelid with fluorescein) Conjunctivae: conjunctival abnormality right conjunctival injection; without discharge, without pallor and without subconjunctival hemmorhages Cornea: corneas normal Pupils: PERRL EOM: EOM intact bilaterally Other: Exam with fluoro shows that there is no corneal abrasion, he does have some uptake on the posterior eyelid, that looks like there is some irritation that it most likely was associated with the foreign body. Currently no foreign body is noted on exam. <Chelsi Zheng MD - Last Filed: 07/11/24 18:55> Initial Vital Signs Initial Vital Signs: Vital Signs Temperature 97.8 F 07/11/24 13:19 Pulse Rate 60 07/11/24 13:19 Respiratory Rate 16 07/11/24 13:19 Blood Pressure 149/93 H 07/11/24 13:19 Pulse Oximetry 100 07/11/24 13:19 Oxygen Delivery Method Room Air 07/11/24 13:19 Course <Odalis Ro PA-C - Last Filed: 07/11/24 17:34> Orders Ordered: Discontinued Medications Fluorescein Sodium (Fluorescein 1 Mg Strip) 1 mg EYE-RIGHT NOW ONE Stop: 07/11/24 13:33 Last Admin: 07/11/24 13:38 Dose: 1 mg Documented By: HOLLY Proparacaine HCl (Proparacaine 0.5% Ophth Bess) 1 drops EYE-RIGHT NOW ONE Stop: 07/11/24 13:33 Last Admin: 07/11/24 13:38 Dose: 1 drop Documented By: HOLLY Vital Signs Vital signs: Vital Signs - 8 hr 07/11/24 13:19 07/11/24 14:57 Temperature 97.8 F Pulse Rate 60 61 Respiratory Rate 16 16 Blood Pressure 149/93 H 114/91 H Pulse Oximetry 100 99 Oxygen Delivery Method Room Air Room Air Reviewed <Chelsi Zheng MD - Last Filed: 07/11/24 18:55> Orders Ordered: Discontinued Medications Fluorescein Sodium (Fluorescein 1 Mg Strip) 1 mg EYE-RIGHT NOW ONE Stop: 07/11/24 13:33 Last Admin: 07/11/24 13:38 Dose: 1 mg Documented By: HOLLY Proparacaine HCl (Proparacaine 0.5% Ophth Bess) 1 drops EYE-RIGHT NOW ONE Stop: 07/11/24 13:33 Last Admin: 07/11/24 13:38 Dose: 1 drop Documented By: HOLLY Vital Signs Vital signs: Vital Signs - 8 hr 07/11/24 13:19 07/11/24 14:57 Temperature 97.8 F Pulse Rate 60 61 Respiratory Rate 16 16 Blood Pressure 149/93 H 114/91 H Pulse Oximetry 100 99 Oxygen Delivery Method Room Air Room Air MDM - Eye Problem <Odalis Ro PA-C - Last Filed: 07/11/24 17:34> MDM Narrative Medical decision making narrative: 63-year-old male presents to the emergency room department with some fuzziness to the right eye after possible foreign body. However that fussiness has pretty much resolved now. Patient treated himself prior to being seen here with copious amounts of flushing to the right eye. Concerned that he might have a corneal abrasion, or might still have a foreign body. Proparacaine and fluorescein shows that currently does not have a corneal abrasion or foreign body that is noted. Does have uptake and looks like irritation to the lower eyelid, he will be prescribed antibiotics just to make sure the eyelid does not get infected. Supportive therapy, ED precautions. Follow up with his primary care doctor as needed. Return to the emergency department as needed. Eyelid abrasion Discharge Plan Departure Patient Disposition: Home Clinical Impression: Abrasion of right eyelid Qualifiers: Encounter type: initial encounter Qualified Code(s): S00.211A - Abrasion of right eyelid and periocular area, initial encounter Activity Restrictions/Additional Instructions: Flush the eyes out Please take the medication use the medication as prescribed Return to the emergency department as needed Apologized to me so long to see Prescriptions: New polymyxin B sulf-trimethoprim 10,000 unit- 1 mg/mL drops 1 drp EYE-RIGHT Q3H Qty: 10 0RF Rx Instructions: For 5 days No Action simvastatin 40 mg tablet 20 mg PO BEDTIME tamsulosin 0.4 mg capsule 0.4 mg PO BEDTIME amlodipine 10 mg tablet 10 mg PO BEDTIME metoprolol succinate 25 mg tablet extended release 24 hr 12.5 mg PO DAILY Qty: 7 0RF Eliquis 5 mg tablet 5 mg PO BID Qty: 14 0RF clindamycin HCl 300 mg capsule 300 mg PO QID Qty: 40 0RF dexamethasone 4 mg tablet 4 mg PO DAILY Qty: 3 0RF Referrals: Erick Laguerre MD [Primary Care Provider] - Stand Alone Forms: Patient Portal/API ED Sign-out <Chelsi Zheng MD - Last Filed: 07/11/24 18:55> [facility] I was immediately available in the department for consultation throughout this patient's visit. Chelsi Zheng MD
[2024-07-11 14:57] VITALS: BP 114/91; PULSE 61; RESP 16; O2SAT 99
== END 2024-07-11 14:58 | disposition home or self-care (01) ==
PROVIDERS: Emergency Provider Physician Assistant; PCP Internal Medicine
DX: S00.211A Abrasion of right eyelid and periocular area, initial encounter (principal); Z79.01 Long term (current) use of anticoagulants
CPT/HCPCS: 99282